=== PATIENT | male | born 1960 | race Caucasian/White ===

== ENCOUNTER 2020-08-26 18:38 | Emergency (ER) | payer OTHER ==
[~2020-08-26] VITALS: Ht 188 cm; Wt 108.9 kg
[2020-08-26] MEDS ORDERED: NORCO5 PO (19:42)
[2020-08-26 20:12] VITALS: BP 132/68
== END 2020-08-26 20:12 | disposition home or self-care (01) ==
LOC: M.ERS 18:38
DX: S62.101A Fracture of unspecified carpal bone, right wrist, initial encounter for closed fracture (principal); Z88.2 Allergy status to sulfonamides; V80.010A Animal-rider injured by fall from or being thrown from horse in noncollision accident, initial encounter; Y93.52 Activity, horseback riding; Y92.89 Other specified places as the place of occurrence of the external cause; Y99.8 Other external cause status